=== PATIENT | male | born 1970 | race Caucasian/White ===

== ENCOUNTER → 2019-06-19 13:26 | Outpatient (CLI) | payer BC, SELFPAY ==
--- NOTE | ~2019-06-19 | MR_ITS ---
EXAMINATION: MR lumbar spine wo con EXAM DATE: 06/19/2019 14:06 INDICATION: Low back pain, left leg pain. Fell on ice April 2019. TECHNIQUE: Multi-sequential, multiplanar MR images of the lumbar spine were obtained without contrast . Sagittal T1, T2, T2 fat saturation images. Axial T2 weighted images. There is no prior study for comparison. FINDINGS: Moderate disc disease L4-5 and L5-S1, mild at the other thoracolumbar levels. The conus med ullaris terminates at the L1 level and has normal signal intensity and morphology. There are no susp icious marrow signal abnormalities. Paraspinal soft tissue is unremarkable. The vertebral bodies are aligned in the AP dimension. Level by level evaluation: T12-L1: Disc does not extend beyond the endplate margin. Facet arthropathy: None. Neural foraminal stenosis: No stenosis. Central canal stenosis: No stenosis. L1-L2: Disc does not extend beyond the endplate margin. Facet arthropathy: Mild. Neural foraminal stenosis: No stenosis. Central canal stenosis: No stenosis. L2-L3: Disc does not extend beyond the endplate margin. Facet arthropathy: Mild. Neural foraminal stenosis: No stenosis. Central canal stenosis: No stenosis. L3-L4: There is a mild to moderate diffuse disc bulge. Facet arthropathy: Mild. Neural foraminal stenosis: Mild to moderate left, mild right. Central canal stenosis: Mild. L4-L5: There is a moderate diffuse disc bulge with superimposed left central extrusion into the later al recess Facet arthropathy: Mild to moderate. Neural foraminal stenosis: Mild to moderate left, mild right. Central canal stenosis: Mild to moderate. Mass effect on traversing left L5 nerve root.. L5-S1: There is a mild to moderate diffuse disc bulge. Facet arthropathy: Mild. Neural foraminal stenosis: Mild to moderate bilateral. Central canal stenosis: Mild. Probable right hemilaminectomy. IMPRESSION: 1. 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 2. Lesser spondylosis above. Reviewed, dictated and finalized at location B. [facility] IMPRESSION: 1. 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 2. Lesser spondylosis above.
== END ==
DX: M47.26 Other spondylosis with radiculopathy, lumbar region (principal)
CPT/HCPCS: 72148

== ENCOUNTER 2022-11-19 08:30 | Emergency (ER) | payer OTHER, SELFPAY ==
[2022-11-19 08:54] VITALS: BP 146/69; PULSE 70; RESP 18; TEMP 36.6; O2SAT 97
--- NOTE | 2022-11-19 08:55 | ED.WOUNDLAC ---
HPI - Wound/Laceration General Chief Complaint: Skin/Abscess/Foreign Body Stated Complaint: lt arm pain irritation and swelling Time Seen by Provider: 11/19/22 08:56 Source: patient Mode of arrival: ambulatory Limitations: no limitations History of Present Illness HPI narrative: 52 y/o male presented for c/o red rash to the left inner elbow worsening over the past 3 days. States it may have started about one week ago as a small red bump, endorses itching and spreading, and some oozing. Also has some reddened areas to the right elbow. Has been applying mupirocin to the site. States he thinks he has a staph infection, as he has a history of them. Denies lip, tongue, or throat swelling, shortness of breath or wheezing. Denies changes to soap, detergent, lotion, or any other exposures. No one else in the house or any contacts with similar symptoms. Related Data Home Medications Medication Instructions Recorded Confirmed mupirocin 2 % topical ointment topical 11/19/22 Allergies Allergy/AdvReac Type Severity Reaction Status Date / Time No Known Allergies Allergy Unverified 03/30/17 18:19 Review of Systems Review of Systems: CONSTITUTIONAL: Denies body aches, fever, chills, or sweats. EYES: Denies visual changes, redness, or discharge. ENT: Denies rhinorrhea, congestion CARDIOVASCULAR: Denies chest pain, palpitations, or edema. RESPIRATORY: Denies cough or dyspnea. GASTROINTESTINAL: Denies abdominal pain, nausea, vomiting, or diarrhea. SKIN: reports rash to arms MUSCULOSKELETAL: Denies back pain, joint pain, or myalgia. NEUROLOGIC: Denies headache, numbness, tingling, or weakness. [facility] Past Medical History Medical History (Updated 11/19/22 @ 09:32 by Padmini Staples APRN) No pertinent past medical history Comments At time of signature, I have reviewed and agree with nursing past medical, surgical, social and family history unless otherwise noted. Please see nursing chart for further information. There is no relevant family history pertinent to the presenting complaint Exam Narrative: GENERAL: Well-appearing HEAD: Normocephalic, atraumatic. EYES: conjunctivae clear ENT: Mucous membranes moist. Oropharynx without edema, erythema or lesions. NECK: Supple. No lymphadenopathy CHEST: Clear to auscultation. HEART: Regular rate and rhythm. SKIN: Warm, dry. Erythematous vesicular patch to left medial elbow approx 6cm diameter, clear oozing, nontender, mild surrounding erythema. No induration or fluctuance, no streaking. Right medial upper arm with few scattered erythematous vesicles c/w contact dermatitis. NEURO: Alert and oriented x3. Course Course Emergency Course: Patient is aware of diagnosis, understands and agrees to treatment plan. Anticipatory guidance given. Patient agrees to follow-up as directed and is aware of reasons to seek care at the emergency department. Portions of this record may have been created with voice recognition software Level of Care: Express Care Visit Vital Signs Vital signs: Vital Signs Temperature 97.9 F 11/19/22 08:54 Pulse Rate 70 11/19/22 08:54 Respiratory Rate 18 11/19/22 08:54 Blood Pressure 146/69 H 11/19/22 08:54 Pulse Oximetry 97 11/19/22 08:54 Oxygen Delivery Room Air 11/19/22 08:54 Temperature 97.9 F 11/19/22 08:54 Pulse Rate 70 11/19/22 08:54 Respiratory Rate 18 11/19/22 08:54 Blood Pressure 146/69 H 11/19/22 08:54 Pulse Oximetry 97 11/19/22 08:54 Oxygen Delivery Room Air 11/19/22 08:54 Reviewed MDM - Wound/Laceration MDM Narrative Medical decision making narrative: Patient presented with rash to left inner arm c/w contact derm. Does not appear at this time to be erythema multiforme, bullous, SJS, TEN; patient looks well, nontoxic and is tolerating oral intake; No soft palate or uvula edema, no tongue, lip edema or other mucosal involvement, no respiratory compromise, no hypotension, no nause
== END 2022-11-19 09:16 | disposition home or self-care (01) ==
PROVIDERS: Emergency Provider Nurse Practitioner Family
DX: L25.9 Unspecified contact dermatitis, unspecified cause (principal)
CPT/HCPCS: 99213; G0463